=== PATIENT | male | born 2000 | race African-American/Black ===

== ENCOUNTER 2024-01-03 14:32 | Emergency (ER) | payer SELFPAY ==
[~2024-01-03] VITALS: Ht 182.9 cm; Wt 90.0 kg
[~2024-01-03 14:32] MED LIST: NEOM28.37 TP
[2024-01-03 14:58] VITALS: BP 153/74; PULSE 68; TEMP 98; O2SAT 100
[2024-01-03] MEDS ORDERED: CEPH500T MT (15:10)
[2024-01-03] MEDS: BACITRACIN ZINC OINT UDPKT TOP ONE (15:29)
[2024-01-03 15:30] VITALS: RESP 17
== END 2024-01-03 17:20 | disposition home or self-care (01) ==
LOC: ER 14:32
DX: S61.412D Laceration without foreign body of left hand, subsequent encounter (principal); X58.XXXD Exposure to other specified factors, subsequent encounter
CPT/HCPCS: 99283